=== PATIENT | female | born 1955 | race Caucasian/White ===

== ENCOUNTER 2020-11-08 14:20 | Emergency (ER) | payer OTHER ==
[~2020-11-08] VITALS: Ht 154.9 cm; Wt 59.0 kg
[2020-11-08 14:36] VITALS: BP 129/72
[2020-11-08 15:14] VITALS: BP 129/72
--- NOTE | 2020-11-08 15:14 | NUR ---
Patient discharged with v/s stable. Written and verbal after care instructions given and explained. Patient verbalized understanding. Ambulatory with steady gait. All questions addressed prior to discharge. Advised to follow up with PMD.
== END 2020-11-08 15:14 | disposition home or self-care (01) ==
LOC: MED 14:20
DX: H11.31 Conjunctival hemorrhage, right eye (principal); E11.9 Type 2 diabetes mellitus without complications; I10 Essential (primary) hypertension
CPT/HCPCS: 99282

== ENCOUNTER 2022-05-21 14:10 | Emergency (ER) | payer OTHER ==
[~2022-05-21] VITALS: Ht 144.8 cm; Wt 53.5 kg
[2022-05-21 14:04] VITALS: BP 132/70
[2022-05-21] MEDS ORDERED: KETOROLAC 30 MG/ML VIAL IM ONE (15:25)
[2022-05-21 15:54] LABS: BASOPHILS % (AUTO) 0.2 % (0.0-2.0); EOSINOPHILS # (AUTO) 0.1 K/uL (0-0.4); HEMATOCRIT 25.1 % (36-48); HEMOGLOBIN 8.7 g/dL (12.0-16.0); LYMPHOCYTES # (AUTO) 0.4 K/uL (2.5-16.5); LYMPHOCYTES % (AUTO) 16.5 % (20.5-51.1); MEAN CORPUSCULAR HEMOGLOBIN 31 pg (27-31); MEAN CORPUSCULAR HGB CONC 35 g/dL (33-37); MEAN CORPUSCULAR VOLUME 90.6 fL (80-94); MONOCYTES # (AUTO) 0.2 K/uL (0.8-1.0); MONOCYTES % (AUTO) 7.2 % (1.7-9.3); NEUTROPHILS % (AUTO) 74.1 % (42.2-75.2); PLATELET COUNT (AUTO) 28 K/uL (140-450); RED BLOOD CELL COUNT(AUTO) 2.77 MIL/uL (4.20-5.40); RED CELL DISTRIBUTION WIDTH 14.8 % (11.6-13.7); WHITE BLOOD COUNT (AUTO) 2.7 K/uL (4.8-10.8)
[2022-05-21 16:16] LABS: ALBUMIN 2.4 g/dL (3.4-5.0); CARBON DIOXIDE 27.7 mmol/L (21-32); CREATININE 1.3 mg/dL (0.6-1.3); POTASSIUM 4.7 mmol/L (3.5-5.1); TOTAL BILIRUBIN 0.9 mg/dL (0.0-1.0)
[2022-05-21] MEDS ORDERED: INDO-323 PO (17:00)
[2022-05-21] MEDS ORDERED: CEPH-588 PO (17:00)
[2022-05-21 17:08] VITALS: BP 132/70
== END 2022-05-21 17:08 | disposition home or self-care (01) ==
LOC: MED 14:10
DX: M79.675 Pain in left toe(s) (principal); L53.9 Erythematous condition, unspecified; R22.42 Localized swelling, mass and lump, left lower limb; E11.9 Type 2 diabetes mellitus without complications; I10 Essential (primary) hypertension; Z79.2 Long term (current) use of antibiotics; Z79.1 Long term (current) use of non-steroidal anti-inflammatories (NSAID)
CPT/HCPCS: 36415; 73630; 80053; 84550; 85025; 96372; 99284; J1885; Q0092

== ENCOUNTER 2023-01-17 18:26 | Emergency (ER) | payer OTHER ==
[~2023-01-17] VITALS: Ht 157.5 cm; Wt 74.8 kg
[~2023-01-17 18:26] MED LIST: CEPH-588 PO; INDO-323 PO
[2023-01-17 18:34] VITALS: BP 145/68
--- NOTE | 2023-01-17 19:24 | NUR ---
Dr. Story examining patient.
[2023-01-17] MEDS ORDERED: TETRACAINE HCL/PF 0.5% OPTH 4 ML BTL OP ONE (19:30)
--- NOTE | 2023-01-17 19:32 | NUR ---
ed DOCTOR AT TO EXAMINE PT , CHECK EYE PRESSURE VIA ANDRÉS PAIN , PT CC/ LEFT EYE PAIN , HEMORRAGE , NO TRAUMA,NO DRAINAGE
== END 2023-01-17 20:10 | disposition home or self-care (01) ==
LOC: MED 18:26
DX: H11.32 Conjunctival hemorrhage, left eye (principal); E11.9 Type 2 diabetes mellitus without complications; I10 Essential (primary) hypertension; Z79.899 Other long term (current) drug therapy; Z79.2 Long term (current) use of antibiotics; Z88.8 Allergy status to other drugs, medicaments and biological substances
CPT/HCPCS: 99281